=== PATIENT | female | born 1980 | race Caucasian/White ===

== ENCOUNTER 2018-11-29 09:34 | Emergency (ER) | payer BC ==
[2018-11-29 09:46] VITALS: BP 153/78
--- NOTE | 2018-11-29 09:49 | UC ---
Palpitation/Dysrhythmia HP - HPI Summary HPI Summary: 38-year-old otherwise healthy female presents with intermittent episodes of heart racing that have occurred over the last week. She states that her heart gets going fast without any exertion or particular stress. THe episodes normally last less than 10 minutes but last night lasted approximately 30 minutes. It was not associated with any other symptoms to include shortness of breath, weakness or lightheadedness. She has never had these symptoms before. She does have a personal history of a heart murmur but denies any family history of cardiac arrhythmia. - History of Current Complaint Stated Complaint: HEART ISSUES Time Seen by Provider: 11/29/18 09:37 Hx Obtained From: Patient Hx Last Menstrual Period: 03/17/16 - Allergy/Home Medications Allergies/Adverse Reactions: Allergies Allergy/AdvReac Type Severity Reaction Status Date / Time No Known Allergies Allergy Verified 04/04/16 10:18 PMH/Surg Hx/FS Hx/Imm Hx Previously Healthy: Yes Cardiovascular History: Other - Heart murmur - Surgical History Surgical History: Yes Surgery Procedure, Year, and Place: X2 - Family History Known Family History: Positive: None - NO FH OF CARDIAC, RESPIRATORY, RENAL DISEASE. Negative: Cardiac Disease - Social History Lives: With Family Alcohol Use: Weekly Substance Use Type: None Smoking Status (MU): Never Smoked Tobacco Review of Systems All Other Systems Reviewed And Are Negative: Yes Constitutional: Positive: Negative Skin: Positive: Negative Eyes: Positive: Negative ENT: Positive: Negative Respiratory: Negative: Shortness Of Breath, Cough Cardiovascular: Positive: Palpitations. Negative: Chest Pain Gastrointestinal: Positive: Negative. Negative: Diarrhea, Nausea Genitourinary: Positive: Negative, Other - recent dx of microscopic hematuria Musculoskeletal: Negative: Arthralgia Physical Exam Triage Information Reviewed: Yes Appearance: Well-Appearing, No Pain Distress, Well-Nourished Vital Signs Reviewed: Yes Eyes: Positive: Conjunctiva Clear ENT: Positive: Normal ENT inspection Neck: Positive: Supple Respiratory: Positive: Chest non-tender, Lungs clear Cardiovascular: Positive: RRR, No Murmur, Pulses Normal Musculoskeletal: Positive: Strength Intact, ROM Intact Neurological: Positive: Alert, Muscle Tone Normal Psychological Exam: Normal Skin Exam: Normal Diagnostics - EKG Cardiac Rate: NL - 76 Cardiac Rhythm: Sinus: Normal Ectopy: None ST Segment: Normal Summary of EKG Findings: PRWP. Nl intervals. Palpitations Course/Dx - Course Course Of Treatment: Patient is fully asymptomatic at present. Heart rate is in the 70s. Blood pressure slightly elevated without diagnosis of same. I will order a Holter monitor which she can have placed at the [facility]. She will call today to schedule this. She'll follow up promptly with her doctor. - Differential Dx/Diagnosis Differential Diagnosis/HQI/PQRI: Hyperventilation, Panic Disorder, Paroxymal SVT , V-Tach, Other - A. fib, PVCs Provider Diagnosis: Rapid palpitations, Elevated blood pressure reading Discharge - Sign-Out/Discharge Documenting (check all that apply): Patient Departure All imaging exams completed and their final reports reviewed: No - Discharge Plan Condition: Improved Disposition: HOME Patient Education Materials: Heart Palpitations (ED) Referrals: Beryl Roberts MD [Medical Doctor] - Additional Instructions: Call the [facility] to have a HOLTER monitor placed. Address: [address] [place] [address] [address], [place] [address] Hours: Open now Go to the ER with persistent palpitations, lightheadedness, passing out, worse, new symptoms or other concerns. Call your doctor today to schedule prompt follow-up. - Billing Disposition and Condition Condition: IMPROVED Disposition: Home - Attestation Statements Document Initiated by Dominick: Geraldine
--- NOTE | 2018-11-29 13:25 | UC ---
Course/Dx - Diagnoses Provider Diagnoses: Rapid palpitations, Elevated blood pressure reading Discharge - Sign-Out/Discharge Documenting (check all that apply): Post-Discharge Follow Up All imaging exams completed and their final reports reviewed: No Studies - Discharge Plan Condition: Improved Disposition: HOME Patient Education Materials: Heart Palpitations (ED) Referrals: Beryl Roberts MD [Medical Doctor] - Additional Instructions: Call the [facility] to have a HOLTER monitor placed. Address: [address] [place] [address] Hours: Open now Go to the ER with persistent palpitations, lightheadedness, passing out, worse, new symptoms or other concerns. Call your doctor today to schedule prompt follow-up. - Billing Disposition and Condition Condition: IMPROVED Disposition: Home
== END 2018-11-29 10:21 | disposition home or self-care (01) ==
LOC: UCEAST 09:34
DX: R00.2 Palpitations (principal); R03.0 Elevated blood-pressure reading, without diagnosis of hypertension; R01.1 Cardiac murmur, unspecified
CPT/HCPCS: 93005; 99212; G0463